=== PATIENT | female | born 1980 | race Caucasian/White ===

== ENCOUNTER → 2017-02-04 | Outpatient (CLI) | payer MEDICAID | END | disposition home or self-care (01) | LOC: US 09:53 | PROC: BW4GZZZ Ultrasonography of Pelvic Region (ICD-10-PCS; principal; 2017-02-04) | DX: R10.2 Pelvic and perineal pain (principal) | CPT/HCPCS: Q0092 ==

== ENCOUNTER 2017-08-10 15:10 | Inpatient (IN) | payer MEDICAID ==
[~2017-08-10] VITALS: Ht 157.5 cm; Wt 67.1 kg
[2017-08-10 15:16] VITALS: Ht 157.5 cm; Wt 67.1 kg
[2017-08-10 16:23] LABS: BASOPHIL % 0.5 % (0-2); PLATELET COUNT 215 x10^3mcL (130-400); RED CELL DISTRIBUTION WIDTH 12.8 % (11.5-14.5)
[2017-08-10 16:36] LABS: CALCIUM 8.8 mg/dL (8.5-10.1); CARBON DIOXIDE 30.2 mmol/L (21-32); CHLORIDE SERUM 99 mmol/L (98-107); CREATININE SERUM 0.6 mg/dL (0.6-1.0); GFR1 > 60 mL/min; GLUCOSE SERUM 82 mg/dL (74-106); POTASSIUM SERUM 3.2 mmol/L (3.5-5.1); SODIUM SERUM 140 mmol/L (136-145)
[2017-08-10 16:54] LABS: microscopic required? NO
[2017-08-10 17:29] LABS: urine erythrocyte NEGATIVE (NEGATIVE)
[2017-08-10] MEDS ORDERED: DEPAKOTE ER500 MG PO (17:35)
[2017-08-10] MEDS ORDERED: SEROQUEL XR300 M1 PO (17:35)
[2017-08-10] MEDS ORDERED: ACYCLOVIR400 MG PO (17:35)
[2017-08-10] MEDS ORDERED: AMANTADINE HCL100 M1 PO (17:35)
[2017-08-10] MEDS ORDERED: COLACE100 MG PO (17:35)
[2017-08-10] MEDS ORDERED: NOR5 PO (17:36)
[2017-08-10] MEDS ORDERED: METOPROLOL SUCC50 M2 PO (17:36)
[2017-08-10] MEDS ORDERED: IBUPROFEN400 MG PO (17:36)
[2017-08-10] MEDS ORDERED: TEGRETOL200 MG PO (17:36)
[2017-08-10] MEDS ORDERED: HYDROCHLOROTHIA25 MG PO (17:36)
[2017-08-10] MEDS ORDERED: CALCIUM/VITAMIN1 TA2 PO (17:36)
[2017-08-10] MEDS ORDERED: POTASSIUM CHLO20 ME1 PO (17:37)
[2017-08-10 19:08] LABS: MAGNESIUM 1.9 mg/dL (1.8-2.4); PHOSPHOROUS 3.5 mg/dL (2.5-4.9)
[2017-08-10 19:10] LABS: CHOLESTEROL/HDL RATIO 1.8
[2017-08-10 19:11] LABS: T3 TOTAL 0.93 ng/mL
[2017-08-10 19:43] VITALS: BP 143/114
[2017-08-10 19:48] LABS: FREE T4 0.74 ng/dL (0.76-1.46)
[2017-08-10 19:52] LABS: FREE THYROXINE INDEX 1.5 ug/dL (1.4-4.5); T4(THYROXINE) 4.6 ug/dL (4.7-13.3)
[2017-08-10 23:16] VITALS: BP 143/114
[2017-08-11 00:03] VITALS: BP 134/87
[2017-08-11 05:34] VITALS: BP 126/80
[2017-08-11 06:10] LABS: BASOPHIL % 0.4 % (0-2); PLATELET COUNT 186 x10^3mcL (130-400); RED CELL DISTRIBUTION WIDTH 12.7 % (11.5-14.5)
[2017-08-11 06:24] LABS: CHLORIDE SERUM 106 mmol/L (98-107); CREATININE SERUM 0.5 mg/dL (0.6-1.0); GFR1 > 60 mL/min; GLUCOSE SERUM 80 mg/dL (74-106); MAGNESIUM 1.8 mg/dL (1.8-2.4); PHOSPHOROUS 3.5 mg/dL (2.5-4.9); POTASSIUM SERUM 3.6 mmol/L (3.5-5.1); SODIUM SERUM 145 mmol/L (136-145)
[2017-08-11 08:01] VITALS: BP 120/83
[2017-08-11 12:37] VITALS: BP 124/85
[2017-08-11] MEDS ORDERED: SEROQUEL300 MG PO (15:40)
[2017-08-11] MEDS ORDERED: ACYCLOVIR400 MG PO (15:44)
[2017-08-11] MEDS ORDERED: CALCIUM/VITAMIN1 TA2 PO (15:48)
[2017-08-11] MEDS ORDERED: POTASSIUM CHLORIDE PO (15:48)
[2017-08-11] MEDS ORDERED: DIAZEPAM PR (15:51)
[2017-08-11 17:06] VITALS: BP 137/93
[2017-08-11 20:52] VITALS: BP 143/93
[2017-08-12 05:22] VITALS: BP 125/89
[2017-08-12 06:02] LABS: BASOPHIL % 0.2 % (0-2); PLATELET COUNT 218 x10^3mcL (130-400); RED CELL DISTRIBUTION WIDTH 12.7 % (11.5-14.5)
[2017-08-12 06:23] LABS: CALCIUM 8.8 mg/dL (8.5-10.1); CARBON DIOXIDE 26.4 mmol/L (21-32); CHLORIDE SERUM 104 mmol/L (98-107); CREATININE SERUM 0.5 mg/dL (0.6-1.0); GFR1 > 60 mL/min; GLUCOSE SERUM 104 mg/dL (74-106); POTASSIUM SERUM 3.8 mmol/L (3.5-5.1); SODIUM SERUM 141 mmol/L (136-145)
[2017-08-12 09:14] VITALS: BP 145/103
[2017-08-12 13:26] VITALS: BP 149/95
[2017-08-12 16:10] VITALS: BP 140/108
[2017-08-12 18:05] VITALS: BP 140/98
[2017-08-12 21:28] VITALS: BP 128/89
[2017-08-13 05:47] VITALS: BP 134/89
[2017-08-13 05:57] LABS: BASOPHIL % 0.3 % (0-2); PLATELET COUNT 215 x10^3mcL (130-400); RED CELL DISTRIBUTION WIDTH 12.5 % (11.5-14.5)
[2017-08-13 06:36] LABS: CALCIUM 8.9 mg/dL (8.5-10.1); CARBON DIOXIDE 25.6 mmol/L (21-32); CHLORIDE SERUM 102 mmol/L (98-107); CREATININE SERUM 0.5 mg/dL (0.6-1.0); GFR1 > 60 mL/min; GLUCOSE SERUM 106 mg/dL (74-106); POTASSIUM SERUM 3.8 mmol/L (3.5-5.1); SODIUM SERUM 139 mmol/L (136-145)
[2017-08-13 09:06] VITALS: BP 134/95
[2017-08-13 13:42] VITALS: BP 136/92
[2017-08-13 16:58] VITALS: BP 137/93
[2017-08-13 21:33] VITALS: BP 140/93
[2017-08-14 05:31] VITALS: BP 123/89
[2017-08-14 07:22] LABS: CARBON DIOXIDE 26.5 mmol/L (21-32); CHLORIDE SERUM 105 mmol/L (98-107); CREATININE SERUM 0.5 mg/dL (0.6-1.0); GFR1 > 60 mL/min; GLUCOSE SERUM 98 mg/dL (74-106); POTASSIUM SERUM 3.5 mmol/L (3.5-5.1); SODIUM SERUM 139 mmol/L (136-145)
[2017-08-14 07:32] LABS: BASOPHIL % 0.4 % (0-2); PLATELET COUNT 210 x10^3mcL (130-400); RED CELL DISTRIBUTION WIDTH 12.6 % (11.5-14.5)
[2017-08-14 10:15] VITALS: BP 123/89
== END 2017-08-14 13:56 | disposition home or self-care (01) | DRG 52 ==
LOC: ED 15:10 → DU 17:31
PROVIDERS: Emergency Medicine; Family Medicine
DX: G92 Toxic encephalopathy (principal); N17.0 Acute kidney failure with tubular necrosis; J69.0 Pneumonitis due to inhalation of food and vomit; G40.909 Epilepsy, unspecified, not intractable, without status epilepticus; I10 Essential (primary) hypertension; E03.9 Hypothyroidism, unspecified; Z88.8 Allergy status to other drugs, medicaments and biological substances; E87.6 Hypokalemia; Y92.89 Other specified places as the place of occurrence of the external cause; F72 Severe intellectual disabilities; T42.1X5A Adverse effect of iminostilbenes, initial encounter
CPT/HCPCS: 84439; J0696; J1644; J1956; J2060; J3480; J3490; J7030; J7620; Q0092

== ENCOUNTER 2017-12-16 17:03 | Emergency (ER) | payer MEDICAID ==
[~2017-12-16] VITALS: Ht 154.9 cm; Wt 66.2 kg
[~2017-12-16 17:03] MED LIST: ACYCLOVIR400 MG PO; AMANTADINE HCL100 M1 PO; CALCIUM/VITAMIN1 TA2 PO; COLACE100 MG PO; DEPAKOTE ER500 MG PO; DIAZEPAM PR; HYDROCHLOROTHIA25 MG PO; IBUPROFEN400 MG PO; METOPROLOL SUCC50 M2 PO; NOR5 PO; POTASSIUM CHLO20 ME1 PO; POTASSIUM CHLORIDE PO; SEROQUEL XR300 M1 PO; SEROQUEL300 MG PO; TEGRETOL200 MG PO
[2017-12-16 17:08] VITALS: Ht 154.9 cm; Wt 66.2 kg
[2017-12-16 17:46] VITALS: BP 138/104
== END 2017-12-16 19:10 | disposition home or self-care (01) ==
LOC: ED 17:03
DX: S30.814A Abrasion of vagina and vulva, initial encounter (principal); T76.21XA Adult sexual abuse, suspected, initial encounter; Y93.89 Activity, other specified; Y92.89 Other specified places as the place of occurrence of the external cause; Y99.8 Other external cause status; M41.80 Other forms of scoliosis, site unspecified; H55.00 Unspecified nystagmus; Z88.8 Allergy status to other drugs, medicaments and biological substances
CPT/HCPCS: 87491; 87591

== ENCOUNTER → 2018-05-16 | Outpatient (CLI) | payer MEDICAID | END | disposition home or self-care (01) | LOC: US 05-12 10:30 | PROC: BW40ZZZ Ultrasonography of Abdomen (ICD-10-PCS; principal; 2018-05-16) | DX: R10.13 Epigastric pain (principal) ==

== ENCOUNTER 2018-11-04 23:22 | Inpatient (IN) | payer MEDICAID ==
[~2018-11-04] VITALS: Ht 157.5 cm; Wt 66.9 kg
[~2018-11-04 23:22] MED LIST changes: +POTASSIUM CHLO10 MEQ PO; -POTASSIUM CHLORIDE PO
[2018-11-04 23:28] VITALS: Ht 157.5 cm; Wt 66.9 kg
--- NOTE | 2018-11-04 23:36 | NUR ---
PT BIB [facility] FROM [facility], C/O SEIZURE X2. PT HAS HX OF MRCP, PT NON-VERBAL. PT TRACKING W/ EYES, NOT FOLLOWING VERBAL COMMANDS. PER MEDIC. PT HAD A SEIZURE AT 2000 LASTING APPROX 1 MIN, AND ANOTHER AT 2200 LASTING APPROX 1MIN. PER MEDIC, PT HAS NOT HAD SEIZURE FOR 12 YEARS. PER MEDIC, PT TACHY AND HOT TO TOUCH ENROUTE. 20G IV PLACED ENROUTE IN R AC, IV FLUSHES WELL. 300CC BOLUS GIVEN EN ROUTE. NO SIGNS OF ACTIVE SEIXURE NOTED AT THIS TIME. PT TACHYCARDIC, AND TACHYPNEIC. PT PLACED ON SPO2 AND INDOOR LANDSCAPE ARCHITECT. SEIZURE PADS IN PLACE, WALL SUCTION CHECKED. RESPS E/U, NAD NOTED AT THIS TIME. EMT AT BEDSIDE FOR EKG. WILL CONTINUE TO MONITOR.
[2018-11-05 00:04] LABS: CALCIUM 8.6 mg/dL (8.5-10.1); CARBON DIOXIDE 28.3 mmol/L (21-32); CHLORIDE SERUM 101 mmol/L (98-107); CREATININE SERUM 0.6 mg/dL (0.6-1.0); GFR1 > 60 mL/min; GLUCOSE SERUM 121 mg/dL (74-106); POTASSIUM SERUM 3.2 mmol/L (3.5-5.1); SODIUM SERUM 140 mmol/L (136-145)
[2018-11-05 00:08] LABS: ALKALINE PHOSPHATASE 88 U/L (46-116); ALT/SGPT 18 U/L (14-59); AST/SGOT 12 U/L (15-37); BILIRUBIN TOTAL 0.3 mg/dL (0.20-1.00); TOTAL PROTEIN, SERUM 8.1 g/dL (6.4-8.2)
[2018-11-05 00:14] LABS: BASOPHIL % 0.1 % (0-2); PLATELET COUNT 215 x10^3mcL (130-400); RED CELL DISTRIBUTION WIDTH 12.9 % (11.5-14.5)
[2018-11-05 00:37] LABS: microscopic required? YES; urine erythrocyte NEGATIVE (NEGATIVE)
--- NOTE | 2018-11-05 01:31 | NUR ---
PT AWAKE AND ALERT, TRACKING W/ EYES. PT RESPONDS TO VERBAL STIMULI. PT DOES NOT FOLLOW COMMANDS. PT SITTING IN BED. RESPS E/U, NAD NOTED AT THIS TIME. CAREGIVER AT BEDSIDE. CALL LIGHT W/IN REACH. AWAITING PENDING RESULTS. WILL CONTINUE TO MONITOR.
--- NOTE | 2018-11-05 01:56 | NUR ---
PT TAKEN TO CT VIA JAIME
--- NOTE | 2018-11-05 02:44 | NUR ---
PT LAYING IN POSITION OF COMFORT, SLEEPING. PT AROUSED, TRACKING W/ EYES. RESPS E/U, NAD NOTED AT THIS TIME. RECEPTION SPECIALIST AT BEDSIDE. CALL LIGHT W/IN REACH. WILL CONTINUE TO MONITOR.
[2018-11-05] MEDS ORDERED: BACLOFEN20 MG PO (03:25)
--- NOTE | 2018-11-05 03:26 | NUR ---
PT TO BE MOVED TO BED FOR ADMISSION. PT MEAT TRIMMER AT [facility] IN [place], JOHANNAZAKI WRIGHT. [phone]. PER MEAT TRIMMER, FOOD IS TO BE CHOPPED WHEN FEEDING PT.
--- NOTE | 2018-11-05 03:37 | NUR ---
REPORT GIVEN TO ENRICO MONTERO
--- NOTE | 2018-11-05 03:45 | NUR ---
RECEIVED PT VIA [facility] FROM ER, ACCOMPANIED BY CAREGIVER ROM AGUSTÍN ROCHA (JOHANNA WRIGHT) [phone]. PT HAS LIVED AT [facility] SINCE APPROX 2003. PT HAS HX OF MR, VISUAL DEFICITS, PARAPLEGIA, CP, SZ, HTN, SCOLIOSIS, KYPHOSCOLOSIS, PSYCH, CONSTIPATION, SPASMS, AGITATION, MB SELF INJURIOUS BEHAVIOR. PER CAREGIVER, PT HAD TWO SZ WHICH IS UNUSUAL FOR HER (8PM & 10PM) AND SHE WAS NOT RETURNING TO BASELINE. PT WAS TACHYCARDIA (HR REMAINS 110'S-120'S). PT ABLE TO TRACK WITH EYES WHEN SPOKEN TO, UNABLE TO FOLLOW COMMANDS. TELE #10, ST WITH INVERTED T WAVE. NO S/S OF CP. PULSES PALPABLE BILAT, NO EDEMA NOTED. PT OBESE, RESP EVEN AND UNLABORED ON RA, NO S/S OF SOB. O2 SAT= 97%. ABD SOUND, ROUND, BOWEL SOUNDS ACTIVE X4 QUAD. PER CAREGIVER, LBM= 8/29 AT NIGHT (FORMED), PT INCONTINENT OF URINE/STOOL. PT STRAIGHT CATH IN ER, UA (+) MANY BACTERIA. PT BEDBOUND, PER CAREGIVER, PT WILL NOT TRY TO GET OUT OF BED, SHE MAY TRY TO SIT UP. SZ PRECAUTIONS IN PLACE, SIDERAILS UP X2 FOR SAFETY. PT CAREGIVER, PT TOLERATES A FINELY CHOPPED DIET AT FACILITY AND NEEDS MEDICATIONS CRUSHED IN APPLESAUCE. BLE CONTRACTURES, BUE ROM FREE, PT ABLE TO GRASP TOYS WHEN SHOWN. PER CAREGIVER, PT AT BASELINE USUALLY MORE VOCAL (YELLS ON OCCASION) AND WILL REFUSE MEDICATION ALTHOUGH IF OFFERED TOYS, SHE WILL TAKE MEDS. SKIN INTACT. PER CAREGIVER, IF PT HAS PAIN, SHE WILL CRY SIMILAR TO BABY. NO PAIN NOTED AT THIS TIME. IV SITE TO THE [facility] PATENT, NO REDNESS, SWELLING OR PAIN NOTED. ALL COMFORT AND SAFETY MEASURES PROVIDED FOR, CALL LIGHT WITHIN REACH, BED IN LOWEST POSITION, WILL CONTINUE TO MONITOR. PER CAREGIVER, PT PRIMARY NURSE= JOHN [phone].
[2018-11-05 03:46] LABS: FREE T4 1.07 ng/dL (0.76-1.46); FREE THYROXINE INDEX 2.4 ug/dL (1.4-4.5); T4(THYROXINE) 6.6 ug/dL (4.7-13.3)
[2018-11-05 04:22] LABS: T3 TOTAL 1.31 ng/mL
[2018-11-05 04:24] VITALS: BP 136/83
--- NOTE | 2018-11-05 05:07 | NUR ---
SPOKE TO DR CISNEROS IN REGARDS TO K+ ORDER IS IN PILL FORM, PT CAN ONLY TOLERATE MEDICATIONS CRUSHED IN APPLESAUCE. K+ PILLS CANNOT BE CRUSHED, PER DR CISNEROS, WILL SWITCH ORDER TO K+ RIDER. WILL WAIT FOR NEW ORDER.
[2018-11-05 07:06] LABS: BASOPHIL % 0.2 % (0-2); PLATELET COUNT 208 x10^3mcL (130-400); RED CELL DISTRIBUTION WIDTH 12.8 % (11.5-14.5)
[2018-11-05 07:15] LABS: CALCIUM 8.5 mg/dL (8.5-10.1); CARBON DIOXIDE 22.4 mmol/L (21-32); CHLORIDE SERUM 107 mmol/L (98-107); CREATININE SERUM 0.4 mg/dL (0.6-1.0); GFR1 > 60 mL/min; GLUCOSE SERUM 106 mg/dL (74-106); MAGNESIUM 1.9 mg/dL (1.8-2.4); PHOSPHOROUS 2.7 mg/dL (2.5-4.9); POTASSIUM SERUM 3.2 mmol/L (3.5-5.1); SODIUM SERUM 142 mmol/L (136-145)
--- NOTE | 2018-11-05 07:25 | NUR ---
RECIEVED PT FROM [employer]KE [employer]ER. PT IS SLEEPING THIS TIME. SAFTEY PREAUCTIONS ARE IN PLACE. WILL MONITOR.
--- NOTE | 2018-11-05 08:00 | NUR ---
PT IS AWAKE, ONLY HAD 10% OF BREAKFAST AND REFUSING TO EAT MORE. INFORMED ABOUT THAT. SHE IS AWARE ABOUT K=3.2 AND PT IS GETTING 20MEQ KRIDER. ASSESSED AND DOCUMENTED. DENIES PAIN THIS TIME. STABLE.
[2018-11-05 08:17] VITALS: BP 141/90
--- NOTE | 2018-11-05 08:30 | NUR ---
PT GWENDOLYN SCORE IS LOW. PUT PT ON AIR MATTRESS AND REPOSITIONING PT Q2HR. STABLE. NO SIGNS OF SZ NOTED THIS TIME.
--- NOTE | 2018-11-05 09:30 | NUR ---
PT REFUSING TO TAKE ALL HER AM MEDICATIONS. TRIED TO GIVE TO PT MULTIPLE TIME BUT PT DOESNOT OPEN HER MOUTH. INFORMED ABOUT THAT. CHARGE NURSE AWARE. CALLED PT'S [facility] FACILITY AND SPOKE WITH DELICATESSEN GOODS STOCK CLERK, SHE SAID SHE WILL COME VISIT HER.
[2018-11-05 12:11] VITALS: BP 137/88
--- NOTE | 2018-11-05 12:30 | NUR ---
CAREGIVER CAME. TRY TO GIVE PT AM MEDICATION, CLINICAL MOLECULAR GENETICIST ALSO TRIED MULTIPLE TIME BUT SHE REFUSED. AFTER MULTIPLE TIME TRYING PT FINALLY TOOK HER MEDICATIONS NOW. PT RESTING IN BED COMFORTABLY. WILL MONITOR.
[2018-11-05 16:49] VITALS: BP 128/79
--- NOTE | 2018-11-05 18:00 | NUR ---
PT TOOK HER DEPAKOTE AND TEGRETOL PO AFTER MULTIPLE TIME TRYING TO GIVE TO HER BUT SHE IS STILL REFUSING TO EAT HER FOOD. PT HAD 10% OF HER LUNCH ONLY AND 5% OF HER DINNER. INFORMED ABOUT PT REFUSING TO EAT. SHE SAID SHE WILL PUT PASSENGER SERVICE REPRESENTATIVE CONSULT. CHARGE NURSE AWARE.
--- NOTE | 2018-11-05 19:05 | NUR ---
PT RESTING IN BED COMFORTABLY. NO DISTRESS NOTED. STABLE. GAVE REPORT TO CONSULTING DATABASE ADMINISTRATOR NURSE.
--- NOTE | 2018-11-05 19:30 | NUR ---
RECIEVED PT FROM KYLAH MALDONADO, PT IS RESTIN GIN BED WITH NO SIGNS OF ACUTE DISTRESS, ASSESSMENT PERFORMED AT THIS TIME, PT IS NONVERBAL, BUT AWAKE, OPENS EYES SPONTANIOUSLY, PT RESPONDS TO VERBAL STIMULI, NO SIGNS OF PAIN OR RESPIRATORY DISTREASS AT THIS TIME, SIEZURE PRECAUTIONS IN PLACE, SAFETY MEASURES MAINTAINED, WILL CONTINUE TO MONITOR
[2018-11-05 20:31] VITALS: BP 142/96
--- NOTE | 2018-11-05 21:50 | NUR ---
PT REFUSED TO TAKE 2100 MEDICATIONS, PT HAS HAD HX OF REFUSING BUT ALLOWING FOR HER PRIMARY CAREGIVER. NOTIFIED CHARGE NURSE TATIANA AND CALLED PRIMARY EMPLOYMENT ADVISOR, WAS ABLE TO GET A HOLD OF FACILITY WHO SAID THEY WOULD REACH OUT TO CONTACT THE PRIMARY CAREGIVER
--- NOTE | 2018-11-05 23:00 | NUR ---
PT HAD ONE VOID, PT CLEANED AND BED CHANGED, ALL NEEDS ATTENDED TO SIEZURE PRECAUTIONS IN PLACE, ALL NEEDS ATTENDED TO, SAFETY PRECAUTIONS IN PLACE, WILL CONTINUE TO MONITOR AND ENDORSE CARE
--- NOTE | 2018-11-06 02:20 | NUR ---
PT VOIDED IN BED, CLEANED PT AND CHANGED LINENS, NO SIGNS OF PAIN OR SOB, SAFETY PRECAUTIONS IN PLACE, WILL CONTINUE TO MONITOR
--- NOTE | 2018-11-06 05:32 | NUR ---
PT RESTED THROUGH EVENING BUT REFUSED TO TAKE MEDICATIONS, ATTEMPTED TO CALL PT PRIMARTY WOODWIND INSTRUMENTS INSPECTOR WHO HAS BEEN ABLE TO HELP HER TAKE HER MEDICATIONS BUT PRIMARY CAREGIVER WAS UNABLE TO BE REACHED. PT WAS TURNED Q2HRS AND REPOSITIONED, SAFETY PRECAUTIONS WERE MAINTAINED THROUGH THE NIGHT ALL NEEDS ATTENDED TO WILL COTNINTUE TO MONITOR AND ENDORSE CARE
[2018-11-06 06:12] VITALS: BP 136/89
[2018-11-06 06:51] LABS: CALCIUM 7.9 mg/dL (8.5-10.1); CARBON DIOXIDE 24.7 mmol/L (21-32); CHLORIDE SERUM 103 mmol/L (98-107); CREATININE SERUM 0.3 mg/dL (0.6-1.0); GFR1 > 60 mL/min; GLUCOSE SERUM 85 mg/dL (74-106); MAGNESIUM 1.8 mg/dL (1.8-2.4); PHOSPHOROUS 2.9 mg/dL (2.5-4.9); POTASSIUM SERUM 4.6 mmol/L (3.5-5.1); SODIUM SERUM 138 mmol/L (136-145)
[2018-11-06 07:18] LABS: PLATELET COUNT 177 x10^3mcL (130-400); RED CELL DISTRIBUTION WIDTH 12.8 % (11.5-14.5)
--- NOTE | 2018-11-06 08:00 | NUR ---
SHIFT ASSESSMENT DONE. PATIENT MENTAL RETARDATION. NON-VERBRAL. NO SEIZURE SINCE ADMISSION. SEIZURE PRECAUTION IN PLACE. TELE#10; SR; HR = 93. NO RESP DISTRESS ON RA. BED RESTING. CONTRACTURE BLE. B/B INCONT. FEEDER, BUT PATIENT REFUSED TO EAT BY FEEDING. IVF OF NS 100CC/HR. IV SITE TO RFA INTACT. NO S/S OF PAIN. CLINICAL DATA ASSOCIATE AT BED SIDE FOR SAFETY MONITOR. CALL LIGHT IN REACH.
[2018-11-06 08:35] VITALS: BP 137/93
[2018-11-06 12:34] VITALS: BP 140/89
[2018-11-06 16:41] VITALS: BP 120/82
--- NOTE | 2018-11-06 18:01 | NUR ---
NO SEIZURE ACTIVITY THIS SHIFT. CONDITION STABLE. PATIENT REFUSED TO MEALS BY FEEDING, BUT ABLE TO TAKE CRASHED MEDS MIXED WITH APPLE SAUSE AND SUGAR. URINE INCONT. PAD CHANGED X4. LARGE AMOUINT OF UOP. NO BM THIS SHIFT. IVF OF NS 100CC/HR TO RFA. ENDORSED CARE TO [facility] NURSE.
--- NOTE | 2018-11-06 19:25 | NUR ---
RECEIVED PT RESTING IN BED, PT FOLLOWING NURSE WITH EYES. HX OF MR, CP, SZ, NONVERBAL. PT MAKES SOME NOICES ALTHOUGH INCOMPREHENSIBLE. SZ PRECAUTIONS IN PLACE. TELE #10, SR 90. NO S/S OF PAIN NOTED. PULSES PALPABLE BILAT, BLE CONTRACTURES NOTED. FREE ROM BUE. PT FEET ELEVATED ON PILLOWS. RESP EVEN AND UNLABORED ON RA, NO S/S OF SOB NOTED. ABD SOFT, ROUND, BOWEL SOUNDS ACTIVE C4 QUAD. PT HAD SMALL BM NEAR CHANGE OF SHIFT TODAY. INCONTINENT OF URINE/STOOL. PT TOLERATED MEDICATION CRUSHED. PT VOIDED MANY TIMES DURING DAYSHIFT. NO S/S OF PAIN NOTED. PT WITH LEFT HIP ABRASION, RECREATIONAL VEHICLE RESORT MANAGER. IV SITE TO RFA PATENT, NS @ 100ML/HR. NO REDNESS, SWELLING OR PAIN NOTED. ALL COMFORT AND SAFETY MEASURES PROVIDED FOR, CALL LIGHT WITHIN REACH, BED IN LOWEST POSITION, WILL CONTINUE TO MONITOR.
[2018-11-06 19:48] VITALS: BP 128/86
--- NOTE | 2018-11-06 22:05 | NUR ---
PT TOLERATED MEDICATION FAIRLY WELL WITH THE ASSISTANCE OF 1 CHORUS DANCER TO SUPPORT HANDS AND DISTRACT WHILE MEDICATION INSERTED INTO MOUTH. PT SWALLOWED ALL MEDS, WITHOUT ATTEMPTING TO SPIT. PROVIDED PT HER TOYS (LEGO) TO STAY OCCUPIED. CALL LIGHT WITHIN REACH, BED IN LOWEST POSITION, WILL CONTINUE TO MONITOR.
--- NOTE | 2018-11-07 05:02 | NUR ---
PT RESTED IN SHORT INTERVALS DURING SHIFT, PT ABLE TO MAKE SIMPLE NEEDS KNOWN SUCH HER BEING WET BY CRYING. PT ABLE TO HELP TURN AT TIMES. PT DID NOT HAVE A BM DURING SHIFT. IV SITE REMAINS PATENT TO RFA NS @ 100ML/HR. NO REDNESS, SWELLING OR PAIN NOTED. SITTER REMAINING AT BEDSIDE TO ASSIST WHEN NEEDED. ALL COMFORT AND SAFETY MEASURES PROVIDED FOR, CALL LIGHT WITHIN REACH, BED IN LOWEST POSITION, WILL CONTINUE TO MONITOR.
[2018-11-07 06:05] VITALS: BP 122/79
[2018-11-07 06:32] LABS: CALCIUM 7.5 mg/dL (8.5-10.1); CARBON DIOXIDE 25.7 mmol/L (21-32); CHLORIDE SERUM 105 mmol/L (98-107); CREATININE SERUM 0.4 mg/dL (0.6-1.0); GFR1 > 60 mL/min; GLUCOSE SERUM 82 mg/dL (74-106); SODIUM SERUM 141 mmol/L (136-145)
[2018-11-07 06:44] LABS: POTASSIUM SERUM 2.8 mmol/L (3.5-5.1)
[2018-11-07 06:47] LABS: BASOPHIL % 0.6 % (0-2); PLATELET COUNT 187 x10^3mcL (130-400); RED CELL DISTRIBUTION WIDTH 13.3 % (11.5-14.5)
--- NOTE | 2018-11-07 07:35 | NUR ---
PT IS MENTALLY RETARDED AND NONVERBAL, SZ PRECAUTIONS, TELE 10, PULSES MODERATE AND EQUAL GUILHERME, NO EDEMA NOTED, LUNG SOUNDS CTA, TOLERATING RA, BOWEL SOUNDS ACTIVE, INCONTINENT OF BM AND URINE, BLE CONTRACTED, BEDBOUND, L HIP ABRASION TONY, IV IN RFA WITH NS @ 100 ML/HR, SITE WNL.
[2018-11-07 08:54] VITALS: BP 131/83
--- NOTE | 2018-11-07 09:48 | NUR ---
ALL MEDS CRUSHED AND PLACED IN PUDDING, PT REFUSING ALL MEDS, AGITATED, TRYING TO BITE ME AND VENTILATION WORKER, TRYING TO BANG HER HEAD AGAINST BED. INTERVENTION MANAGER ROSY NOTIFIED AND STATED CAREGIVER TO GIVE MEDS WHEN SHE ARRIVES. SITTER AT BEDSIDE, CALL LIGHT WITHIN REACH.
--- NOTE | 2018-11-07 12:11 | NUR ---
PT RESPOITIONED TO L SIDE, NO RESPRIATORY DISTRESS, CONT TO BE AGITATED AND RESISTIVE TO CARE, SITTER AT BEDSIDE, CALL LIGHT WITHIN REACH.
--- NOTE | 2018-11-07 14:15 | NUR ---
PT GIVEN CRUSHED MEDS IN APPLE SAUCE, PT RESITIVE, MOANING LOUDLY, TRYING TO BITE HERSELF AND STAFF, NO SWALLOWING DIFFICULTOES NOTED, SITTER AT BEDSIDE, CALL LIGHT WITHIN REACH.
--- NOTE | 2018-11-07 15:21 | NUR ---
PT RESTING IN BED, REPOSITIONED TO SUPINE, NO RESPIRATORY DISTRESS NOTED, SITTER AT BEDSIDE, CALL LIGHT WITHIN REACH.
--- NOTE | 2018-11-07 16:54 | NUR ---
PT VOIDED, LINENS AND GOWN CHANGED, PT REPOSITIONED TO R SIDE, SITTER AT BEDSIDE, CALL LIGHT WITHIN REACH.
[2018-11-07 18:14] VITALS: BP 133/92
--- NOTE | 2018-11-07 18:51 | NUR ---
PT VOIDED, LINENS CHANGED, NO RESPRIATORY DISTRESS NOTED, IN NO APPARANT PAIN, REPOSITIONED TO L SIDE, SITTER AT BEDSIDE, PT REFUSING TO EAT, CALL LIGHT WITHIN REACH.
--- NOTE | 2018-11-07 19:30 | NUR ---
RECEIVED PT FROM DAY SHIFT RN. PT NONVERBAL, HX OF MR. PT BREATHING EVEN AND UNLABORED ON RA WITH NO SOB NOTED. TELE #10 SR HR 94. IV RFA PATENT, INFUISNG WELL WITH NO SIGNS OF INFILTRATION. ABD SOFT/ROUND ACTIVE BOWEL SOUNDS. BLE CONTRACTED. PT REPOSITIONED AT THIS TIME. LEFT HIP ABRASION NOTED TONY. NO SIGNS OF ACUTE DISTRESS. CALL BUTTON WITHIN REACH. SAFETY/SEIZURE PRECAUTIONS IN PLACE. GRAIN II FARMWORKER AT BEDSIDE TO ASSIST PT. WILL CONTINUE TO MONITOR.
--- NOTE | 2018-11-07 19:38 | NUR ---
ENDORSED CARE TO KEVIN MONTERO.
[2018-11-07 20:33] VITALS: BP 134/89
--- NOTE | 2018-11-08 00:50 | NUR ---
PT AWAKE RESTING IN BED. BREATHING EVEN AND UNLABORED ON RA, NO SOB NOTED. IV PATENT, INFUSING WELL. NO SIGNS OF DISTRESS. CALL BUTTON WITHIN REACH. SITER AT BEDSIDE. SAFETY/SEIZURE/ASPIRATION PRECAUTIONS IN PLACE. WILL CONTINUE TO MONITOR.
--- NOTE | 2018-11-08 02:30 | NUR ---
ROUNDS MADE. PT RESTING. BREATHING EVEN AND UNLABORED. NO SIGNS OF DISTRESS. IV PATENT, INFUSING WELL. SITTER AT BEDSIDE. SAFETY/ASPIRATION/SEIZURE PRECAUTIONS IN [place]CE. WILL CONTINUE TO MONITOR.
--- NOTE | 2018-11-08 05:26 | NUR ---
PT SLEPT ON AND OFF THROUGHOUT THE NIGHT. NO SIGNS OF DISTRESS. IV PATENT, INFUISNG WELL. PT TURN AND REPOSITIONED EVERY TWO HOURS. MEDICATED PER EMAR. SITTER AT BEDSIDE. CALL BUTTON WITHIN REACH. SAFETY/ASPIRATION/SEIZURE PRECAUTIONS IN PLACE. WILL CONTINUE TO MONITOR AND ENDORSE CARE TO DAY SHIFT RN.
[2018-11-08 06:20] VITALS: BP 141/94
[2018-11-08 07:07] LABS: BASOPHIL % 0.3 % (0-2); PLATELET COUNT 192 x10^3mcL (130-400)
--- NOTE | 2018-11-08 07:23 | NUR ---
PT IS MENTALLY RETARDED AND NONVERBAL, SZ PREACUTIONS, TELE 10, PULSES MODERATE AND EQUAL GUILHERME, NO EDEMA NOTED, LUNG SOUNDS CTA, TOLERATING RA, BOWEL SOUNDS ACTIVE, INCONTINENT OF URINE, URINE FOUL SMELLING, BUE CONTRACTED, L HIP ABRASION CLOSED WOUND TONY, IV IN RFA WITH NS @ 100 ML/HR, SITE WNL, SITTER AT BEDSIDE.
--- NOTE | 2018-11-08 07:25 | NUR ---
PT RESTING. NO SIGNS OF DISTRESS. ENDORSED CARE TO DAY SHIFT RN, ALL QUESTIONS ADDRESSED.
[2018-11-08 07:30] LABS: CALCIUM 8.1 mg/dL (8.5-10.1); CARBON DIOXIDE 26.4 mmol/L (21-32); CHLORIDE SERUM 101 mmol/L (98-107); CREATININE SERUM 0.4 mg/dL (0.6-1.0); GFR1 > 60 mL/min; GLUCOSE SERUM 81 mg/dL (74-106); MAGNESIUM 1.9 mg/dL (1.8-2.4); POTASSIUM SERUM 3.2 mmol/L (3.5-5.1); SODIUM SERUM 140 mmol/L (136-145)
--- NOTE | 2018-11-08 07:55 | NUR ---
SCREEN FOR LOW GWENDOLYN SCALE AT RISK CONTINUE PRESSURE ULCER INJURY PREVENTION INTERVENTIONS: -TURN AND REPOSITION PATIENT Q 2H OFFLOAD LEFT AND RIGHT HIPS -ASSESS AND MONITOR SKIN CONDITION DURING POSITION CHANGE -OFFLOAD BILATERAL HEELS BY PLACING PILLOWS UNDER CALVES AT ALL TIMES, UNLESS OTHERWISE CONTRAINDICATED -PRESSURE REDISTRIBUTION SURFACE THERAPY -KEEP SKIN CLEAN AND DRY AT ALL TIMES.
--- NOTE | 2018-11-08 09:49 | NUR ---
PT VOIDED, LINENS AND GOWN CHANGED, PT REPOSITIONED TO R SIDE, NO RESPRIATORY DISTRESS NOTED, SITTER AT BEDSIDE, CALL LIGHT WITHIN REACH. PT RESISTIVE TO CARE. ABLE TO GIVE PT CRUSHED MEDS IN APPLE SAUCE WITH ASSISTANCE OF SITTER.
[2018-11-08 09:57] VITALS: BP 148/92
--- NOTE | 2018-11-08 10:35 | NUR ---
[facility]ARD AND CUSTOM VAN CONVERTER SHANNAN NOTIFIED THAT PT READY FOR DC. ALSO TELEPHONED PTS AUNT CAMERON, NO ANSWER BUT LEFT MESSAGE THAT PT TO BE DC BACK TO [facility]ARE TODAY AND LEFT MY NAME AND CALL BACK NUMBER.
[2018-11-08 10:36] VITALS: BP 148/92
--- NOTE | 2018-11-08 10:55 | NUR ---
REPS FROM [facility] SHANNAN DN JOHANNA WRIGHT AT BEDSIDE TO EVALUATE PT TO RETURN. PER REPS, PT OKAY TO RETURN TO [facility]+C TODAY. JOHANNA WRIGHT REP WAS GIVEN ALL DC INSTRUCTIONS AND VERBALIZED UNDERSTANDING. JOHANNA WRIGHT SIGNED ALL DC PAPERWORK. REPS JOHANNA AND SHANNAN TO ARRANGE TRANSPORT FOR PT BACK TO [facility] APPROX AFTER 1300.
--- NOTE | 2018-11-08 12:17 | NUR ---
PT CAREGIVER AT BEDSIDE ASSISTING WITH FEEDING PT AND PT MEDS. PER CAREGIVER, TRANSPORT WILL BE HERE IN APPROX 1 HOUR. NO RESPRIATORY DISTRESS NOTED, CALL LIGHT WITHIN REACH.
--- NOTE | 2018-11-08 13:40 | NUR ---
CAREGIVER JOHANNA AT BEDSIDE ACCEPTING ALL RESPONICSIBILITY FOR PT AND WILL TRANSPORT PT BACK TO [facility] AND CARE. IV REMOVED FROM RFA WITH CATHETER INTACT, GAUZE AND TAPE PLACED ON SITE. CAREGIVER PLACED PT IN OWN CLOTHES AND IN PERSONAL WC. PT OFF UNI VIA WC ESCORTED BY TEACHERS' ASSISTANT AND CAREGIVER WITH ALL BELONGINGS.
--- NOTE | 2018-11-08 13:42 | NUR ---
TELE 10 RETURNED TO TELE STATION WITH HAIDER MONTERO.
== END 2018-11-08 13:39 | DRG 53 ==
LOC: ED 23:22 → DU 11-05 03:00
PROVIDERS: Emergency Medicine; ADMIT Internal Medicine
DX: G40.401 Other generalized epilepsy and epileptic syndromes, not intractable, with status epilepticus (principal); F73 Profound intellectual disabilities; G80.8 Other cerebral palsy; M41.9 Scoliosis, unspecified; E87.6 Hypokalemia; E86.0 Dehydration; R00.0 Tachycardia, unspecified; E03.9 Hypothyroidism, unspecified; I10 Essential (primary) hypertension; F31.9 Bipolar disorder, unspecified; Z79.899 Other long term (current) drug therapy; Z68.29 Body mass index [BMI] 29.0-29.9, adult
CPT/HCPCS: 84439; G0378; J3480; J7030

== ENCOUNTER → 2019-02-06 | Outpatient (CLI) | payer MEDICAID ==
[~2019-02-06] MED LIST changes: +BACLOFEN20 MG PO
== END | disposition home or self-care (01) ==
LOC: US 09:50
PROC: BW4GZZZ Ultrasonography of Pelvic Region (ICD-10-PCS; principal; 2019-02-06)
DX: N83.202 Unspecified ovarian cyst, left side (principal)